=== PATIENT | female | born 1950 ===

== ENCOUNTER 2019-10-06 22:10 | Outpatient (REF) | payer MEDICARE, BC, SELFPAY ==
[2019-10-06 21:37] LABS: Absolute Basophil Count 0.02 k/cumm (0.0-0.2); Absolute Eosinophil Count 0.07 k/cumm (0.0-0.7); Absolute Lymphocyte Count 1.61 k/cumm (1.2-3.4); Absolute Monocyte Count 0.39 k/cumm (0.11-0.7); Absolute Neutrophil Count 3.05 k/cumm (1.2-6.7); Basophils % 0.4; Eosinophils % 1.4; HCT 37.5 % (36.0-46.0); HGB 12.1 g/dL (12.0-15.5); Lymphocytes % 31.3; Mean Corp. HGB Concentration 32.3 g/dL (32.0-36.0); Mean Corpuscular Volume 92.8 fL (80-95); Monocytes % 7.6; Neutrophils % 59.3; Platelet Count 218 x1000/uL (130-400); RBC 4.04 m/cumm (4.00-5.20); RBC Distribution Width 13.1 % (11.7-14.6); White Blood Cell Count 5.14 k/cumm (4.4-10.8)
[2019-10-06 22:56] LABS: ALT 21 U/L (14-59); AST 16 U/L (15-37); Alkaline Phosphatase 82 U/L (46-116); Anion Gap 9.3 mmol/L (3-11); BUN 20 mg/dL (7-18); Bilirubin, Total 0.3 mg/dL (0.2-1.0); C-Reactive Protein 0.07 mg/dL (0.0-0.3); CO2 28.7 mmol/L (21.0-32.0); CREATININE 0.83 mg/dL (0.55-1.02); Chloride 105 mmol/L (98-107); Glucose 97 mg/dL (74-106); Potassium 4.1 mmol/L (3.5-5.1); Sodium 143 mmol/L (136-145); Total Protein 6.5 g/dL (6.4-8.2)
[2019-10-08 10:13] LABS: Hepatitis C Ab w Rflx HCV PCR Negative (Negative)
[2019-10-12 12:45] LABS: IgA 208 mg/dL (85-499); Tissue Transglutaminase IgA <1.2 U/mL (<4.0)
== END 2019-10-06 22:30 ==
LOC: NCHCN 22:10
PROVIDERS: Visit Provider Family Medicine
DX: I45.10 Unspecified right bundle-branch block (principal); K52.9 Noninfective gastroenteritis and colitis, unspecified; R63.4 Abnormal weight loss; Z11.59 Encounter for screening for other viral diseases
CPT/HCPCS: 80053; 82784; 83516; 86803; 84443; 85025; 86140

== ENCOUNTER 2020-06-30 14:01 | Outpatient (REF) | payer MEDICARE, BC, SELFPAY ==
[2020-06-30 21:02] LABS: Magnesium 2.1 mg/dL (1.8-2.4)
[2020-06-30 21:29] LABS: Vitamin D 25 Total 45.8 ng/ml (30-100)
== END 2020-06-30 14:02 | disposition home or self-care (01) ==
LOC: NCHCN 14:01
PROVIDERS: Visit Provider Family Medicine
DX: K21.9 Gastro-esophageal reflux disease without esophagitis (principal); M85.88 Other specified disorders of bone density and structure, other site
CPT/HCPCS: 82306; 83735

== ENCOUNTER 2022-08-21 14:27 | Outpatient (CLI) | payer MEDICARE, BC, SELFPAY ==
[2022-08-21 12:17] LABS: Abs Immature Grans 0.01 10^3/uL (0.0-0.06); Absolute Basophil Count 0.04 10^3/uL (0.0-0.2); Absolute Eosinophil Count 0.09 10^3/uL (0.0-0.7); Absolute Lymphocyte Count 0.66 10^3/uL (1.2-3.4); Absolute Monocyte Count 0.33 10^3/uL (0.1-0.8); Absolute Neutrophil Count 2.11 10^3/uL (1.2-6.7); Basophils % 1.2; Eosinophils % 2.8; HCT 34.6 % (36.0-46.0); HGB 11.1 g/dL (11.2-15.7); Immature Grans % 0.3; Lymphocytes % 20.4; MCH 31.8 pg (27.0-33.0); MCHC 32.1 % (32.0-36.0); MCV 99 fL (80-95); Monocytes % 10.2; Neutrophils % 65.1; Platelet Count 163 10^3/uL (130-400); RBC 3.49 10^6/uL (3.93-5.22); RDW 13.9 % (11.7-14.6); RDW-SD 50.5 fL; WBC 3.24 10^3/uL (4.4-10.8)
[2022-08-21 12:45] LABS: ALT 22 U/L (14-59); AST 14 U/L (15-37); Albumin 3.8 g/dL (3.4-5.0); Alkaline Phosphatase 81 U/L (46-116); Anion Gap 6.7 mmol/L (3-11); BUN 15 mg/dL (7-18); Bilirubin, Total 0.3 mg/dL (0.2-1.0); CO2 28.3 mmol/L (21.0-32.0); CREATININE 1.1 mg/dL (0.55-1.02); Calcium 9.1 mg/dL (8.5-10.1); Chloride 107 mmol/L (98-107); Estimated GFR 53.72 (mL/min/1.73m2); Glucose 104 mg/dL (74-106); Potassium 4.3 mmol/L (3.5-5.1); Sodium 142 mmol/L (136-145); Total Protein 7.6 g/dL (6.4-8.2)
== END 2022-08-21 14:28 | disposition home or self-care (01) ==
LOC: LBO 14:28
PROVIDERS: Visit Provider Internal Medicine
DX: C50.919 Malignant neoplasm of unspecified site of unspecified female breast (principal)
CPT/HCPCS: 36415; 80053; 85025

== ENCOUNTER 2022-09-18 03:09 | Outpatient (CLI) | payer MEDICARE, BC, SELFPAY ==
[2022-09-18 09:56] LABS: Absolute Basophil Count 0.05 10^3/uL (0.0-0.2); Absolute Eosinophil Count 0.07 10^3/uL (0.0-0.7); Absolute Lymphocyte Count 0.69 10^3/uL (1.2-3.4); Absolute Neutrophil Count 1.49 10^3/uL (1.2-6.7); Eosinophils % 2.8; HCT 36.5 % (36.0-46.0); HGB 11.7 g/dL (11.2-15.7); Lymphocytes % 27.6; MCH 31.9 pg (27.0-33.0); MCHC 32.1 % (32.0-36.0); MCV 100 fL (80-95); MPV 8.9 fL (8.0-11.0); Neutrophils % 59.6; Platelet Count 149 10^3/uL (130-400); RBC 3.67 10^6/uL (3.93-5.22); RDW 13.2 % (11.7-14.6); RDW-SD 48.9 fL
[2022-09-18 10:38] LABS: ALT 24 U/L (14-59); AST 17 U/L (15-37); Albumin 3.7 g/dL (3.4-5.0); Alkaline Phosphatase 86 U/L (46-116); Anion Gap 7.5 mmol/L (3-11); BUN 18 mg/dL (7-18); Bilirubin, Total 0.3 mg/dL (0.2-1.0); CO2 30.5 mmol/L (21.0-32.0); CREATININE 1.1 mg/dL (0.55-1.02); Calcium 8.9 mg/dL (8.5-10.1); Chloride 105 mmol/L (98-107); Estimated GFR 53.39 (mL/min/1.73m2); Glucose 109 mg/dL (74-106); Potassium 3.9 mmol/L (3.5-5.1); Sodium 143 mmol/L (136-145); Total Protein 7.5 g/dL (6.4-8.2)
== END 2022-09-18 03:10 | disposition home or self-care (01) ==
LOC: LBO 03:09
PROVIDERS: Visit Provider Internal Medicine
DX: C50.919 Malignant neoplasm of unspecified site of unspecified female breast (principal)
CPT/HCPCS: 36415; 80053; 85025

== ENCOUNTER 2022-10-19 01:54 | Outpatient (CLI) | payer MEDICARE, BC, SELFPAY ==
[2022-10-19 09:30] LABS: Abs Immature Grans 0.01 10^3/uL (0.0-0.06); Absolute Basophil Count 0.04 10^3/uL (0.0-0.2); Absolute Eosinophil Count 0.11 10^3/uL (0.0-0.7); Absolute Lymphocyte Count 0.73 10^3/uL (1.2-3.4); Absolute Monocyte Count 0.31 10^3/uL (0.1-0.8); Absolute Neutrophil Count 2.19 10^3/uL (1.2-6.7); Basophils % 1.2; Eosinophils % 3.2; HCT 37.7 % (36.0-46.0); Immature Grans % 0.3; Lymphocytes % 21.5; MCH 30.7 pg (27.0-33.0); MCHC 31.8 % (32.0-36.0); MCV 96 fL (80-95); MPV 8.9 fL (8.0-11.0); Monocytes % 9.1; Neutrophils % 64.7; Platelet Count 159 10^3/uL (130-400); RBC 3.91 10^6/uL (3.93-5.22); RDW 12.3 % (11.7-14.6); WBC 3.39 10^3/uL (4.4-10.8)
[2022-10-19 10:08] LABS: ALT 21 U/L (14-59); AST 17 U/L (15-37); Albumin 3.7 g/dL (3.4-5.0); Alkaline Phosphatase 84 U/L (46-116); Anion Gap 7.9 mmol/L (3-11); BUN 18 mg/dL (7-18); Bilirubin, Total 0.5 mg/dL (0.2-1.0); CO2 30.1 mmol/L (21.0-32.0); CREATININE 1.1 mg/dL (0.55-1.02); Chloride 103 mmol/L (98-107); Estimated GFR 53.39 (mL/min/1.73m2); Glucose 107 mg/dL (74-106); Potassium 3.9 mmol/L (3.5-5.1); Sodium 141 mmol/L (136-145); Total Protein 7.2 g/dL (6.4-8.2)
== END 2022-10-19 01:55 | disposition home or self-care (01) ==
LOC: LBO 01:54
PROVIDERS: Visit Provider Internal Medicine
DX: C50.919 Malignant neoplasm of unspecified site of unspecified female breast (principal)
CPT/HCPCS: 36415; 80053; 85025

== ENCOUNTER 2022-11-12 02:39 | Outpatient (CLI) | payer MEDICARE, BC, SELFPAY ==
[2022-11-12 09:00] LABS: Absolute Basophil Count 0.03 10^3/uL (0.0-0.2); Absolute Eosinophil Count 0.04 10^3/uL (0.0-0.7); Absolute Lymphocyte Count 0.68 10^3/uL (1.2-3.4); Absolute Monocyte Count 0.27 10^3/uL (0.1-0.8); Absolute Neutrophil Count 1.08 10^3/uL (1.2-6.7); Basophils % 1.4; Eosinophils % 1.9; HCT 36.1 % (36.0-46.0); HGB 11.4 g/dL (11.2-15.7); Lymphocytes % 32.4; MCH 30.9 pg (27.0-33.0); MCHC 31.6 % (32.0-36.0); MCV 98 fL (80-95); MPV 8.9 fL (8.0-11.0); Monocytes % 12.9; Neutrophils % 51.4; Platelet Count 153 10^3/uL (130-400); RBC 3.69 10^6/uL (3.93-5.22); RDW 13.1 % (11.7-14.6); RDW-SD 46.6 fL
[2022-11-12 09:17] LABS: ALT 17 U/L (14-59); AST 14 U/L (15-37); Albumin 3.6 g/dL (3.4-5.0); Alkaline Phosphatase 81 U/L (46-116); Anion Gap 5.7 mmol/L (3-11); BUN 19 mg/dL (7-18); Bilirubin, Total 0.3 mg/dL (0.2-1.0); CO2 30.3 mmol/L (21.0-32.0); CREATININE 1.1 mg/dL (0.55-1.02); Calcium 8.6 mg/dL (8.5-10.1); Chloride 105 mmol/L (98-107); Estimated GFR 53.39 (mL/min/1.73m2); Glucose 107 mg/dL (74-106); Potassium 3.6 mmol/L (3.5-5.1); Sodium 141 mmol/L (136-145); Total Protein 7.2 g/dL (6.4-8.2)
== END 2022-11-12 02:40 | disposition home or self-care (01) ==
LOC: LBO 02:39
PROVIDERS: Visit Provider Internal Medicine
DX: C50.919 Malignant neoplasm of unspecified site of unspecified female breast (principal)
CPT/HCPCS: 36415; 80053; 85025

== ENCOUNTER 2022-12-11 03:01 | Outpatient (CLI) | payer MEDICARE, BC, SELFPAY ==
[2022-12-11 14:36] LABS: Abs Immature Grans 0.01 10^3/uL (0.0-0.06); Absolute Basophil Count 0.04 10^3/uL (0.0-0.2); Absolute Eosinophil Count 0.05 10^3/uL (0.0-0.7); Absolute Lymphocyte Count 0.82 10^3/uL (1.2-3.4); Basophils % 1.3; Eosinophils % 1.7; HCT 34.2 % (36.0-46.0); HGB 10.8 g/dL (11.2-15.7); Immature Grans % 0.3; Lymphocytes % 27.2; MCH 30.3 pg (27.0-33.0); MCHC 31.6 % (32.0-36.0); MCV 96 fL (80-95); MPV 8.9 fL (8.0-11.0); Monocytes % 9.9; Neutrophils % 59.6; Platelet Count 156 10^3/uL (130-400); RBC 3.56 10^6/uL (3.93-5.22); RDW 13.8 % (11.7-14.6); RDW-SD 49.2 fL; WBC 3.02 10^3/uL (4.4-10.8)
[2022-12-11 16:36] LABS: ALT 23 U/L (14-59); AST 17 U/L (15-37); Albumin 3.6 g/dL (3.4-5.0); Alkaline Phosphatase 80 U/L (46-116); Anion Gap 5.5 mmol/L (3-11); BUN 25 mg/dL (7-18); Bilirubin, Total 0.4 mg/dL (0.2-1.0); CO2 30.5 mmol/L (21.0-32.0); CREATININE 1.3 mg/dL (0.55-1.02); Calcium 8.9 mg/dL (8.5-10.1); Chloride 103 mmol/L (98-107); Estimated GFR 43.69 (mL/min/1.73m2); Glucose 156 mg/dL (74-106); Potassium 4.4 mmol/L (3.5-5.1); Sodium 139 mmol/L (136-145); Total Protein 6.6 g/dL (6.4-8.2)
== END 2022-12-11 03:02 | disposition home or self-care (01) ==
LOC: LBO 03:01
PROVIDERS: Visit Provider Internal Medicine
DX: C50.911 Malignant neoplasm of unspecified site of right female breast (principal)
CPT/HCPCS: 36415; 80053; 85025

== ENCOUNTER 2023-01-15 01:41 | Outpatient (CLI) | payer MEDICARE, BC, SELFPAY ==
[2023-01-15 10:59] LABS: Abs Immature Grans 0.01 10^3/uL (0.0-0.06); Absolute Basophil Count 0.06 10^3/uL (0.0-0.2); Absolute Eosinophil Count 0.04 10^3/uL (0.0-0.7); Absolute Lymphocyte Count 0.62 10^3/uL (1.2-3.4); Absolute Monocyte Count 0.24 10^3/uL (0.1-0.8); Absolute Neutrophil Count 1.65 10^3/uL (1.2-6.7); Basophils % 2.3; Eosinophils % 1.5; HCT 36.1 % (36.0-46.0); HGB 11.5 g/dL (11.2-15.7); Immature Grans % 0.4; Lymphocytes % 23.7; MCH 31.3 pg (27.0-33.0); MCHC 31.9 % (32.0-36.0); MCV 98 fL (80-95); MPV 9.2 fL (8.0-11.0); Monocytes % 9.2; Neutrophils % 62.9; Platelet Count 196 10^3/uL (130-400); RBC 3.68 10^6/uL (3.93-5.22); RDW 14.4 % (11.7-14.6); RDW-SD 51.9 fL; WBC 2.62 10^3/uL (4.4-10.8)
[2023-01-15 11:05] LABS: ALT 15 U/L (14-59); AST 16 U/L (15-37); Albumin 3.6 g/dL (3.4-5.0); Alkaline Phosphatase 86 U/L (46-116); Anion Gap 7.5 mmol/L (3-11); BUN 21 mg/dL (7-18); Bilirubin, Total 0.3 mg/dL (0.2-1.0); CO2 26.5 mmol/L (21.0-32.0); CREATININE 1.2 mg/dL (0.55-1.02); Calcium 9.2 mg/dL (8.5-10.1); Chloride 106 mmol/L (98-107); Estimated GFR 48.09 (mL/min/1.73m2); Glucose 101 mg/dL (74-106); Potassium 3.9 mmol/L (3.5-5.1); Sodium 140 mmol/L (136-145); Total Protein 7.6 g/dL (6.4-8.2)
== END 2023-01-15 01:42 | disposition home or self-care (01) ==
LOC: LBO 01:42
PROVIDERS: Visit Provider Internal Medicine
DX: C50.911 Malignant neoplasm of unspecified site of right female breast (principal)
CPT/HCPCS: 36415; 80053; 85025

== ENCOUNTER 2023-08-13 05:52 | Outpatient (CLI) | payer MEDICARE, BC, SELFPAY ==
[2023-08-13 12:15] LABS: Abs Immature Grans 0.01 10^3/uL (0.0-0.06); Absolute Basophil Count 0.06 10^3/uL (0.0-0.2); Absolute Eosinophil Count 0.03 10^3/uL (0.0-0.7); Absolute Lymphocyte Count 0.67 10^3/uL (1.2-3.4); Absolute Monocyte Count 0.22 10^3/uL (0.1-0.8); Absolute Neutrophil Count 1.59 10^3/uL (1.2-6.7); Basophils % 2.3; Eosinophils % 1.2; HCT 33.8 % (36.0-46.0); HGB 10.9 g/dL (11.2-15.7); Immature Grans % 0.4; MCH 32.2 pg (27.0-33.0); MCHC 32.2 % (32.0-36.0); MCV 100 fL (80-95); MPV 8.8 fL (8.0-11.0); Monocytes % 8.5; Neutrophils % 61.6; Platelet Count 151 10^3/uL (130-400); RBC 3.38 10^6/uL (3.93-5.22); RDW 13.2 % (11.7-14.6); RDW-SD 48.7 fL; WBC 2.58 10^3/uL (4.4-10.8)
[2023-08-13 12:38] LABS: ALT 26 U/L (14-59); AST 16 U/L (15-37); Albumin 3.8 g/dL (3.4-5.0); Alkaline Phosphatase 71 U/L (46-116); Anion Gap 8.2 mmol/L (3-11); BUN 23 mg/dL (7-18); Bilirubin, Total 0.4 mg/dL (0.2-1.0); CO2 28.8 mmol/L (21.0-32.0); CREATININE 1.1 mg/dL (0.55-1.02); Calcium 8.8 mg/dL (8.5-10.1); Chloride 102 mmol/L (98-107); Estimated GFR 53.39 (mL/min/1.73m2); Glucose 96 mg/dL (74-106); Potassium 4.1 mmol/L (3.5-5.1); Sodium 139 mmol/L (136-145); Total Protein 7.2 g/dL (6.4-8.2)
[2023-08-15 12:59] LABS: Cancer Ag 15-3 13 U/mL (<30)
== END 2023-08-13 05:53 | disposition home or self-care (01) ==
LOC: LBO 05:52
PROVIDERS: Visit Provider Internal Medicine
DX: C50.911 Malignant neoplasm of unspecified site of right female breast (principal)
CPT/HCPCS: 36415; 80053; 86300; 85025

== ENCOUNTER 2023-09-12 16:23 | Outpatient (REF) | payer MEDICARE, BC, SELFPAY ==
[2023-09-12 21:39] LABS: Abs Immature Grans 0.01 10^3/uL (0.0-0.06); Absolute Basophil Count 0.05 10^3/uL (0.0-0.2); Absolute Eosinophil Count 0.04 10^3/uL (0.0-0.7); Absolute Lymphocyte Count 0.68 10^3/uL (1.2-3.4); Absolute Monocyte Count 0.28 10^3/uL (0.1-0.8); Absolute Neutrophil Count 2.04 10^3/uL (1.2-6.7); Basophils % 1.6 %; Eosinophils % 1.3 %; HCT 33.9 % (36.0-46.0); HGB 11.3 g/dL (11.2-15.7); Immature Grans % 0.3 %; Lymphocytes % 21.9 %; MCHC 33.3 % (32.0-36.0); MCV 99 fL (80-95); MPV 9.9 fL (8.0-11.0); Neutrophils % 65.9 %; Platelet Count 172 10^3/uL (130-400); RBC 3.42 10^6/uL (3.93-5.22); RDW 13.1 % (11.7-14.6); RDW-SD 47.9 fL
[2023-09-12 21:56] LABS: ALT 21 U/L (14-59); AST 20 U/L (15-37); Albumin 3.8 g/dL (3.4-5.0); Alkaline Phosphatase 70 U/L (46-116); Anion Gap 8.9 mmol/L (3-11); BUN 16 mg/dL (7-18); Bilirubin, Total 0.3 mg/dL (0.2-1.0); CO2 24.1 mmol/L (21.0-32.0); CREATININE 1.1 mg/dL (0.55-1.02); Calcium 8.8 mg/dL (8.5-10.1); Chloride 105 mmol/L (98-107); Estimated GFR 53.06 (mL/min/1.73m2); Glucose 130 mg/dL (74-106); Potassium 4.3 mmol/L (3.5-5.1); Sodium 138 mmol/L (136-145); Total Protein 7.2 g/dL (6.4-8.2)
== END 2023-09-12 16:24 | disposition home or self-care (01) ==
LOC: NCHCN 16:23
PROVIDERS: Nurse Practitioner; Visit Provider Family Medicine
DX: C50.919 Malignant neoplasm of unspecified site of unspecified female breast (principal); M81.8 Other osteoporosis without current pathological fracture
CPT/HCPCS: 80053; 85025

== ENCOUNTER 2023-11-19 02:02 | Outpatient (CLI) | payer MEDICARE, BC, SELFPAY ==
[2023-11-19 07:31] LABS: Abs Immature Grans 0.01 10^3/uL (0.0-0.06); Absolute Basophil Count 0.04 10^3/uL (0.0-0.2); Absolute Eosinophil Count 0.04 10^3/uL (0.0-0.7); Absolute Monocyte Count 0.22 10^3/uL (0.1-0.8); Basophils % 1.5 %; Eosinophils % 1.5 %; HCT 34.6 % (36.0-46.0); HGB 11.4 g/dL (11.2-15.7); Immature Grans % 0.4 %; Lymphocytes % 22.1 %; MCH 32.4 pg (27.0-33.0); MCHC 32.9 % (32.0-36.0); MCV 98 fL (80-95); MPV 9.3 fL (8.0-11.0); Monocytes % 8.1 %; Neutrophils % 66.4 %; Platelet Count 161 10^3/uL (130-400); RBC 3.52 10^6/uL (3.93-5.22); RDW 13.2 % (11.7-14.6); RDW-SD 46.8 fL; WBC 2.71 10^3/uL (4.4-10.8)
[2023-11-19 08:21] LABS: Albumin 3.7 g/dL (3.4-5.0); Alkaline Phosphatase 76 U/L (46-116); BUN 18 mg/dL (7-18); Bilirubin, Total 0.42 mg/dL (0.2-1.0); CREATININE 1.1 mg/dL (0.55-1.02); Estimated GFR 53.06 (mL/min/1.73m2); Glucose 106 mg/dL (74-106); Potassium 3.8 mmol/L (3.5-5.1); Sodium 142 mmol/L (136-145); Total Protein 7.1 g/dL (6.4-8.2)
[2023-11-19 08:22] LABS: ALT 25 U/L (14-59); AST 21 U/L (15-37); Anion Gap 7.1 mmol/L (3-11); CO2 29.9 mmol/L (21.0-32.0); Chloride 105 mmol/L (98-107)
[2023-11-20 18:25] LABS: Cancer Ag 15-3 14 U/mL (<30)
== END 2023-11-19 02:03 | disposition home or self-care (01) ==
PROVIDERS: Visit Provider Nurse Practitioner
DX: C50.919 Malignant neoplasm of unspecified site of unspecified female breast (principal)
CPT/HCPCS: 36415; 80053; 86300; 85025

== ENCOUNTER 2023-12-27 01:30 | Outpatient (CLI) | payer MEDICARE, BC, SELFPAY ==
[2023-12-27 11:44] LABS: HCT 33.7 % (36.0-46.0); HGB 10.7 g/dL (11.2-15.7); MCH 32.3 pg (27.0-33.0); MCHC 31.8 % (32.0-36.0); MCV 102 fL (80-95); RBC 3.31 10^6/uL (3.93-5.22); WBC 2.79 10^3/uL (4.4-10.8)
[2023-12-27 11:45] LABS: Abs Immature Grans 0.01 10^3/uL (0.0-0.06); Absolute Basophil Count 0.04 10^3/uL (0.0-0.2); Absolute Eosinophil Count 0.12 10^3/uL (0.0-0.7); Absolute Lymphocyte Count 0.43 10^3/uL (1.2-3.4); Absolute Monocyte Count 0.24 10^3/uL (0.1-0.8); Absolute Neutrophil Count 1.95 10^3/uL (1.2-6.7); Basophils % 1.4 %; Eosinophils % 4.3 %; Immature Grans % 0.4 %; Lymphocytes % 15.4 %; MPV 8.6 fL (8.0-11.0); Monocytes % 8.6 %; Neutrophils % 69.9 %; Platelet Count 170 10^3/uL (130-400); RDW 13.2 % (11.7-14.6); RDW-SD 49.4 fL
[2023-12-27 12:00] LABS: ALT 18 U/L (14-59); AST 17 U/L (15-37); Albumin 3.3 g/dL (3.4-5.0); Alkaline Phosphatase 87 U/L (46-116); Anion Gap 8.8 mmol/L (3-11); BUN 19 mg/dL (7-18); Bilirubin, Total 0.33 mg/dL (0.2-1.0); CO2 29.2 mmol/L (21.0-32.0); Calcium 8.9 mg/dL (8.5-10.1); Chloride 104 mmol/L (98-107); Estimated GFR 59.49 (mL/min/1.73m2); Glucose 84 mg/dL (74-106); Potassium 4.1 mmol/L (3.5-5.1); Sodium 142 mmol/L (136-145); Total Protein 7.2 g/dL (6.4-8.2)
== END 2023-12-27 01:31 | disposition home or self-care (01) ==
PROVIDERS: Visit Provider Nurse Practitioner
DX: C50.919 Malignant neoplasm of unspecified site of unspecified female breast (principal)
CPT/HCPCS: 36415; 80053; 85025

== ENCOUNTER 2024-01-20 03:15 | Outpatient (CLI) | payer MEDICARE, BC, SELFPAY ==
[2024-01-20 16:39] LABS: Abs Immature Grans 0.01 10^3/uL (0.0-0.06); Absolute Basophil Count 0.05 10^3/uL (0.0-0.2); Absolute Eosinophil Count 0.16 10^3/uL (0.0-0.7); Absolute Lymphocyte Count 0.59 10^3/uL (1.2-3.4); Absolute Monocyte Count 0.27 10^3/uL (0.1-0.8); Absolute Neutrophil Count 1.91 10^3/uL (1.2-6.7); Basophils % 1.7 %; Eosinophils % 5.4 %; HCT 35.9 % (36.0-46.0); HGB 11.5 g/dL (11.2-15.7); Immature Grans % 0.3 %; Lymphocytes % 19.7 %; MCH 32.4 pg (27.0-33.0); MCV 101 fL (80-95); Neutrophils % 63.9 %; Platelet Count 178 10^3/uL (130-400); RBC 3.55 10^6/uL (3.93-5.22); RDW-SD 48.4 fL; WBC 2.99 10^3/uL (4.4-10.8)
[2024-01-20 17:34] LABS: Ferritin 69 ng/mL (8-252); Vitamin B12 353 pg/mL (193-986)
[2024-01-20 17:50] LABS: ALT 19 U/L (14-59); AST 23 U/L (15-37); Albumin 3.6 g/dL (3.4-5.0); Alkaline Phosphatase 110 U/L (46-116); BUN 18 mg/dL (7-18); Bilirubin, Total 0.32 mg/dL (0.2-1.0); Chloride 102 mmol/L (98-107); Estimated GFR 59.49 (mL/min/1.73m2); Glucose 136 mg/dL (74-106); Potassium 4.5 mmol/L (3.5-5.1); Sodium 142 mmol/L (136-145); Total Protein 7.4 g/dL (6.4-8.2)
[2024-01-20 18:29] LABS: Iron 52 ug/dL (50-170); Total Iron Binding Capacity 365 ug/dL (250-450); Transferrin Sat 14 % (15-50)
== END 2024-01-20 03:16 | disposition home or self-care (01) ==
LOC: LBO 03:15
PROVIDERS: Internal Medicine; Visit Provider Nurse Practitioner
DX: R06.09 Other forms of dyspnea (principal); C50.919 Malignant neoplasm of unspecified site of unspecified female breast
CPT/HCPCS: 36415; 80053; 82607; 82728; 83540; 83550; 85025

== ENCOUNTER 2024-01-23 09:56 | Outpatient (CLI) | payer MEDICARE, BC, SELFPAY ==
--- NOTE | 2024-01-23 | DI.CT_ITS ---
Exam(s) CT CHEST PE CTA EXAM: CT CHEST PE CTA CLINICAL HISTORY: R06.9 I26.99 Other dyspnea,other PE w/o acute cor pulmonale. TECHNIQUE: Imaging Protocol: CT angiography of the chest was performed using pulmonary embolus aaron col. Multi planar reconstructions were performed. CONTRAST MATERIAL: Intravenous: Omnipaque 350 Contrast volume: 100 cc COMPARISON: CT CT CHEST W/O CONTRAST from 02/03/2020 FINDINGS: CHEST: PULMONARY ARTERIES: There are no intraluminal filling defects to suggest acute pulmonary emboli. LUNGS: There are increase ground-glass infiltrates throughout both lung rodriguez probably related to ai r trapping. There are no pleural effusions. MEDIASTINUM: There is no hilar nor mediastinal adenopathy. Visualized thyroid unremarkable. CARDIAC: Heart size is upper normal. There is no pericardial effusion.Caliber of the thoracic aorta is within normal limits. No evidence of dissection. There is no significant shift of the interventri cular septum. PARTIALLY VISUALIZED UPPERMOST ABDOMEN: No obvious findings OSSEOUS: No significant osseous lesions.Fractures.. IMPRESSION: 1. No evidence of acute pulmonary emboli. No evidence of pulmonary infarction.No pleural effusions. 2. Mild increased markings throughout both lung rodriguez is probably related to air trapping. No pleur al effusions. 3. No evidence of aortic dissection nor pericardial effusions RADIATION DOSE DELIVERED: 67.17mGy.cm Total DLP DATA REPOSITORY: All CT scans at this facility are submitted to the National Radiology Data Registry (NRDR) Dose Index Registry (DIR) with the [employer] ([employer]). RADIATION OPTIMIZATION: All CT scans at this facility use at least one of these dose optimization te chniques: automated exposure control; mA and/or kV adjustment per patient size (includes targeted exa ms where dose is matched to clinical indication); or iterative reconstruction.
[2024-01-23] MEDS: Omnipaque 350 MG/ML 500 ML BTL-Imaging package 100 ML IJ (11:54)
[2024-01-23] MEDS: Normal Saline - Diluent 50 ML VIAL IJ (11:56)
== END 2024-01-23 10:16 ==
PROVIDERS: Visit Provider Family Medicine
DX: I26.99 Other pulmonary embolism without acute cor pulmonale (principal)
CPT/HCPCS: 71275

== ENCOUNTER 2024-09-02 02:52 | Outpatient (CLI) | payer MEDICARE, BC, SELFPAY ==
[2024-09-02 11:28] LABS: Absolute Basophil Count 0.03 10^3/uL (0.0-0.2); Absolute Eosinophil Count 0.07 10^3/uL (0.0-0.7); Absolute Lymphocyte Count 0.74 10^3/uL (1.2-3.4); Absolute Monocyte Count 0.38 10^3/uL (0.1-0.8); Absolute Neutrophil Count 2.32 10^3/uL (1.2-6.7); Basophils % 0.8 %; HCT 38.5 % (36.0-46.0); HGB 12.7 g/dL (11.2-15.7); Lymphocytes % 20.9 %; MCH 31.1 pg (27.0-33.0); MCV 94 fL (80-95); MPV 9.3 fL (8.0-11.0); Monocytes % 10.7 %; Neutrophils % 65.6 %; Platelet Count 173 10^3/uL (130-400); RBC 4.09 10^6/uL (3.93-5.22); RDW 12.9 % (11.7-14.6); RDW-SD 44.7 fL; WBC 3.54 10^3/uL (4.4-10.8)
[2024-09-02 11:58] LABS: ALT 25 U/L (14-59); AST 19 U/L (15-37); Albumin 3.8 g/dL (3.4-5.0); Alkaline Phosphatase 73 U/L (46-116); Anion Gap 6.1 mmol/L (3-11); BUN 22 mg/dL (7-18); Bilirubin, Total 0.4 mg/dL (0.2-1.0); CO2 29.9 mmol/L (21.0-32.0); CREATININE 0.9 mg/dL (0.55-1.02); Calcium 9.5 mg/dL (8.5-10.1); Chloride 105 mmol/L (98-107); Glucose 70 mg/dL (74-106); Potassium 3.9 mmol/L (3.5-5.1); Sodium 141 mmol/L (136-145); Total Protein 7.2 g/dL (6.4-8.2)
== END 2024-09-02 02:53 | disposition home or self-care (01) ==
LOC: LBO 02:52
PROVIDERS: Visit Provider Internal Medicine
DX: C50.919 Malignant neoplasm of unspecified site of unspecified female breast (principal)
CPT/HCPCS: 36415; 80053; 85025